=== PATIENT | male | born 1960 | race Caucasian/White ===

== ENCOUNTER 2022-02-09 09:09 | Day surgery (SDC) | payer OTHER ==
[~2022-02-09] VITALS: Ht 188 cm; Wt 117.2 kg
[2022-02-09 10:22] VITALS: BP 124/78; PULSE 63; TEMP 97.8
[2022-02-09] MEDS ORDERED: PRILOSEC 20MG20 MG PO (10:28)
[2022-02-09] MEDS ORDERED: ALLEGRA 180MG180 MG PO (10:29)
[2022-02-09] MEDS ORDERED: SINGULAIR 110 MG/TAB PO (10:29)
[2022-02-09] MEDS ORDERED: MULTIPLE VITAMI1 TA5 PO (10:30)
[2022-02-09 11:40] VITALS: BP 98/57; PULSE 63; TEMP 97
--- NOTE | 2022-02-09 11:51 | NUR ---
1140 - PT arrived and was settled by an RN. Monitors applied and VSS. PT provided a warm muffin and ice water per request. PT denies nausea and pain. Warm blankets provided. PT oriented to room and call zurita, within reach. 1150 - DR is speaking with PT. PT ambulates from chair to bathroom without difficulty. Then back to chair, monitors reapplied. Call zurita is within reach.
[2022-02-09 11:55] VITALS: BP 106/63; PULSE 53
--- NOTE | 2022-02-09 12:03 | NUR ---
1145 - VSS. PT expressed desire to be discharged. Call zurita remains within reach.
--- NOTE | 2022-02-09 12:04 | NUR ---
1155 - VSS. Call zurita remains within reach.
[2022-02-09 12:10] VITALS: BP 107/65; PULSE 54
--- NOTE | 2022-02-09 12:15 | NUR ---
1210 - VSS. NC instructions and educational material reviewed with the PT who verbalized understanding and signed the related paperwork. Questions answered to PT satisfaction. IV discontinued. Catheter tip intact. Pressure bandage applied. NO redness or swelling noted. PT denied needing RN assistance changing into personal clothes, however call zurita remains within reach.
--- NOTE | 2022-02-09 12:18 | NUR ---
PT dismissed from endo via wheelchair to the PT entrence by a Tech. PT has DC packet and personal belongings and was transferred into the care of Yasmin, who is driving private car.
[2022-02-09 13:41] VITALS: BP 98/59; TEMP 97
[2022-02-09 13:46] VITALS: PULSE 64
== END 2022-02-09 12:19 | disposition home or self-care (01) ==
LOC: SDCO 09:09
DX: Z12.11 Encounter for screening for malignant neoplasm of colon (principal); Z13.810 Encounter for screening for upper gastrointestinal disorder; D12.5 Benign neoplasm of sigmoid colon; D13.1 Benign neoplasm of stomach; K21.00 Gastro-esophageal reflux disease with esophagitis, without bleeding; K57.30 Diverticulosis of large intestine without perforation or abscess without bleeding; Q39.8 Other congenital malformations of esophagus; K29.70 Gastritis, unspecified, without bleeding; Z79.899 Other long term (current) drug therapy; Z90.89 Acquired absence of other organs; Z98.890 Other specified postprocedural states
CPT/HCPCS: J2704; J7120